=== PATIENT | female | born 2000 | race Hispanic/Latino ===

== ENCOUNTER 2019-12-26 17:09 | Emergency (ER) | payer OTHER ==
[~2019-12-26 17:09] MED LIST: SINGULAIR5 MG OR; XOLAIR; [UNRECOGNIZED DRUG - REMARK]
[2019-12-26 20:31] VITALS: BP 121/67
[2019-12-26] MEDS ORDERED: ORPHENADRINE100 MG PO (20:31)
[2019-12-26] MEDS ORDERED: IBUPROFEN600 MG PO (20:31)
== END 2019-12-26 20:38 | disposition home or self-care (01) | DRG 159 ==
LOC: ED 17:09
DX: S03.2XXA Dislocation of tooth, initial encounter (principal); S01.511A Laceration without foreign body of lip, initial encounter; S80.812A Abrasion, left lower leg, initial encounter; S13.4XXA Sprain of ligaments of cervical spine, initial encounter; S60.222A Contusion of left hand, initial encounter; V47.6XXA Car passenger injured in collision with fixed or stationary object in traffic accident, initial encounter

== ENCOUNTER 2022-04-20 08:43 | Emergency (ER) | payer SELFPAY ==
[2022-04-20] VITALS (9 sets, daily range): BP systolic 94–109; BP diastolic 48–67
[~2022-04-20] VITALS: Ht 157.5 cm; Wt 68.0 kg
[~2022-04-20 08:43] MED LIST changes: +IBUPROFEN600 MG PO; +ORPHENADRINE100 MG PO
== END 2022-04-20 10:51 | disposition home or self-care (01) | DRG 605 ==
LOC: ED 08:43
PROC: 0HQFXZZ Repair Right Hand Skin, External Approach (ICD-10-PCS; principal; 2022-04-20)
DX: S61.011A Laceration without foreign body of right thumb without damage to nail, initial encounter (principal); W25.XXXA Contact with sharp glass, initial encounter; Y92.89 Other specified places as the place of occurrence of the external cause; Y99.0 Civilian activity done for income or pay; M79.5 Residual foreign body in soft tissue

== ENCOUNTER 2022-04-27 10:47 | Emergency (ER) | payer SELFPAY ==
[~2022-04-27] VITALS: Ht 167.6 cm; Wt 72.0 kg
[2022-04-27 10:52] VITALS: BP 113/68
[2022-04-27] MEDS ORDERED: CEPHALEXIN500 MG PO (11:23)
== END 2022-04-27 11:41 | disposition home or self-care (01) | DRG 951 ==
LOC: ED 10:47
DX: Z48.02 Encounter for removal of sutures (principal)

== ENCOUNTER 2022-06-21 07:11 | Emergency (ER) | payer SELFPAY ==
[~2022-06-21] VITALS: Ht 167.6 cm; Wt 68.0 kg
[2022-06-21] VITALS (9 sets, daily range): BP systolic 105–131; BP diastolic 55–102
[~2022-06-21 07:11] MED LIST changes: +CEPHALEXIN500 MG PO
[2022-06-21 07:43] LABS: HEMOGLOBIN 12.2 g/dl (12.0-16.0); IMMATURE GRANULOCYTES 0.1 % (0.0-5.0); MEAN CELL VOLUME 87.2 fL CALC (80.0-100.0); MEAN CORPUSCULAR HGB CONC 32.1 g/dL CAL (32.0-36.0); NEUT# 5.34 thou/uL (2.00-7.15); RED BLOOD COUNT 4.36 mill/uL (4.20-5.60)
[2022-06-21 08:04] LABS: ALBUMIN 4.3 g/dL (3.2-5.0); ALKALINE PHOSPHATASE 50 u/l (38-126); ANION GAP 12 (6-22 (CALC)); BILIRUBIN, TOTAL 0.4 mg/dL (0.0-1.4); BUN 6 mg/dL (7-17); BUN/CREATININE RATIO 11 (12-20 (CALC)); CARBON DIOXIDE 26 mmol/l (22-30); CHLORIDE 105 mmol/l (95-108); CREATININE 0.5 mg/dL (0.5-1.0); GFR FOR AFR.AMER. > 60 ML/MIN (>=60 (CALC)); GFR OTHER RACES > 60 ML/MIN (>=60 (CALC)); LIPASE 48 u/l (23-300); POTASSIUM 3.6 mmol/l (3.5-5.1); SGOT/AST 17 u/l (14-36); SODIUM 139 mmol/l (137-146); TOTAL PROTEIN 7.1 g/dL (6.3-8.2)
[2022-06-21 08:32] LABS: URINE BLOOD DIPSTICK NEGATIVE (NEGATIVE); URINE COLOR YELLOW; URINE GLUCOSE - DIPSTICK NEGATIVE (NEGATIVE); URINE KETONE >=80 mg/dL (NEGATIVE); URINE LEUK ESTERASE NEGATIVE (NEGATIVE); URINE PH 6.5 (4.5-8.0); URINE PROTEIN - DIPSTICK NEGATIVE (NEG-TRACE); URINE SPECIFIC GRAVITY 1.025; URINE UROBILINOGEN - DIPSTICK 0.2 E.U./dL (0.2)
[2022-06-21 08:48] LABS: URINE BILIRUBIN - DIPSTICK NEGATIVE (NEGATIVE); URINE NITRITE - DIPSTICK NEGATIVE (Negative)
[2022-06-21] MEDS ORDERED: METRONIDAZOLE250 MG PO (09:12)
[2022-06-21] MEDS ORDERED: IMODIUM2 MG PO (09:12)
[2022-06-21] MEDS ORDERED: CIPROFLOXACN500 MG PO (09:12)
[2022-06-21] MEDS ORDERED: ZOFRAN4 MG/TAB PO (09:12)
== END 2022-06-21 10:00 | disposition home or self-care (01) | DRG 392 ==
LOC: ED 07:11
PROVIDERS: Emergency Medicine
DX: K52.9 Noninfective gastroenteritis and colitis, unspecified (principal)

== ENCOUNTER 2024-09-05 05:03 | Emergency (ER) | payer SELFPAY ==
[~2024-09-05] VITALS: Ht 167.6 cm; Wt 81.0 kg
[~2024-09-05 05:03] MED LIST changes: +CIPROFLOXACN500 MG PO; +IMODIUM2 MG PO; +METRONIDAZOLE250 MG PO; +ZOFRAN4 MG/TAB PO
[2024-09-05] MEDS ORDERED: ONDANSETRON 4 MG/TAB ODT PO ONE (05:25)
[2024-09-05 05:31] LABS: URINE BLOOD DIPSTICK Negative (NEGATIVE); URINE GLUCOSE - DIPSTICK Negative (NEGATIVE); URINE KETONE 40 mg/dL (NEGATIVE); URINE LEUK ESTERASE Negative (NEGATIVE); URINE NITRITE - DIPSTICK Negative (Negative); URINE PROTEIN - DIPSTICK 100 mg/dL (NEG-TRACE); URINE SPECIFIC GRAVITY >=1.030; URINE UROBILINOGEN - DIPSTICK 0.2 E.U./dL (0.2)
[2024-09-05 05:33] LABS: URINE COLOR Yellow
[2024-09-05 05:38] LABS: URINE MUCUS MANY hpf (NONE-FEW); URINE RBC 0-2 RBC/hpf (0-5); URINE SQUAMOUS EPITHELIAL CELL MANY EPI/hpf (0-FEW); URINE TRANSITIONAL EPI. CELLS FEW hpf; URINE WBC 0-2 WBC/hpf (0-5)
[2024-09-05 06:04] VITALS: BP 110/61
== END 2024-09-05 06:04 | disposition home or self-care (01) | DRG 179 ==
LOC: ED 05:03
PROVIDERS: Family Medicine
DX: U07.1 COVID-19 (principal); R52 Pain, unspecified; R50.9 Fever, unspecified; R11.0 Nausea; R51.9 Headache, unspecified; R09.81 Nasal congestion